=== PATIENT | female | born 1955 | race Caucasian/White ===

== ENCOUNTER → 2019-05-17 | Day surgery (SDC) | payer OTHER ==
[~2019-05-17] MED LIST: ASACOL400 MG PO; ATORVASTATIN CA20 MG PO; B12 IM; CALCIUM + D TA1 EACH; CELEXA20 MG PO; FAMOTIDINE 20 MG/2 ML VIAL IV ONE; FENTANYL CITRATE/PF 100MCG/2 ML INJ ONE; GLUCAGON FOR INJ 1 MG VIAL ONE; HYDROCHLOROTH12.5 MG PO; HYOSCYAMINE 0.125 MG TAB ONE; LEXAPRO10 MG PO; LISINOPRIL5 MG PO; MAGNESIUM500 MG PO; MIDAZOLAM HCL 2 MG/2 ML VIAL ONE; MIRALAX17 GM PO; MVI; NEXIUM40 MG PO; ONDANSETRON HCL INJ 2MG/ML 2ML 2 MG/ML VIAL ONE; PHENERGAN PO; PHENERGAN SUPP25 MG PR; PROPOFOL IV EMULSION 10 MG/ML 20 ML VIAL ONE; SENNALAX-S TAB1 EACH PO; TRAZODONE HCL50 MG PO; TYLENOL PO; VITAMIN B-121000 MCG PO; Z.0.EFFEXOR XR150 MG PO; Z.0.NEXIUM40 MG PO; Z.0.REGLAN10 MG PO; Z.0.XANAX0.5 MG PO; ZOFRAN8 MG PO; ZOFRAN8 MG SL; [UNRECOGNIZED DRUG - OTHER] PO; [UNRECOGNIZED DRUG - OTHER] PO
--- OUTSIDE RECORDS SUMMARY | 2019-05-17 06:13 | XMS REPORT | Clinical Summary ---
Author Author [facility] Address Unknown Phone Unavailable Care Team Providers Care Deputy Editor In Chief Name Role Phone Floyd Steele MD PCP Allergies Not on File Medications Not on file Active Problems Not on file Encounters Care Team Description Date Type Specialty Floyd Steele Jr., MD Screening breast examination 12/12/2018 Hospital Radiology Encounter Floyd Steele Jr., MD Menopause 12/12/2018 Hospital Radiology Encounter Floyd Steele Jr., MD Screening breast examination (Primary Dx); Menopause 12/07/2018 Transcribe Access Orders after 05/16/2018 Social History Date Tobacco Use Types Packs/Day Years Used Never Assessed Sex Assigned at Date Recorded Not on file Industry Job Start Date Occupation Not on file Not on file Not on file Travel End Travel History Travel Start No recent travel history available. Last Filed Vital Signs Not on file Plan of Treatment Health Maintenance Due Date Last Done Comments COLONOSCOPY SCREENING 2007 SHINGLES VACCINES (#1) 2007 INFLUENZA VACCINE 06/27/2019 BREAST CANCER SCREENING 12/12/2020 12/12/2018, 12/19/2017, 12/06/2016, Additional history exists Procedures Comments Procedure Name Priority Date/Time Associated Diagnosis BONE DENSITY Routine 12/12/2018 Menopause 11:53 AM [employer] MAMMO BREAST SCREEN Routine 12/12/2018 Screening breast TOMOSYNTHESIS BILATERAL 11:09 AM [employer]IENCE CAPTAIN examination after 05/16/2018 Results * Bone Density (12/12/2018 11:53 AM [employer]UE[employer] EXPERIENCE CAPTAIN) Specimen Narrative Performed At DEXA SCAN DATE: 12/12/2018 11:28 AM [facility] CLINICAL HISTORY:Z78.0 Asymptomatic menopausal state, MENOPAUSE COMMENT: DEXA bone densitometry was performed on the Hologic Discovery unit utilizing the lumbar spine and bilateral hips. AP spine (L2-L5) evaluation: Total BMD:1.125 g/cm2. Mean T score:-0.6 SD Left hip evaluation: Total BMD:0.932 g/cm2. Mean T score:-0.6 SD Left femoral neck BMD:0.848 g/cm2. Mean T score:-1.4 SD. Right hip evaluation: Total BMD:0.943 g/cm2. Mean T score:-0.5 SD Right femoral neck BMD: Right femoral neck BMD0.839 g/cm2. Mean T score:-1.4 SD. IMPRESSION: The patient is considered osteopenic according to the world health organization (WHO) guidelines. 10-year probability of fracture: Major osteoporotic: 8.1%. Hip fracture: 0.7%. Notes: *The world health organization (WHO) has classified the patient's T-score as follows: At or above (-1) as normal (-1) to (-2.5) as low (osteopenia) At or below (-2.5) as abnormally low (osteoporosis, increased fracture risk) For premenopausal women, men under the age 50 years, and children the WHO classification does not apply. In these individuals please assess bone mineral density with Z scores for each skeletal site examined. Z scores above -2.0: Within expected range for age. Z scores lower than -2.0:Low bone density for age. The TBS is derived from the texture of the DEXA image and has been shown to be related to bone microarchitecture and fracture risk. This data provides information independent of BMD value; is used as a complement to the data obtained from the DEXA analysis and the clinical examination. The TBS can assist the healthcare professional in assessment of fracture risk and in monitoring the effect of treatments on patient over time. [facility]-[id number] Procedure Note [facility], Radiology Results Incoming - 12/12/2018 2:16 PM [employer] EXPERIENCE [employer]TAIN DEXA SCAN DATE: 12/12/2018 11:28 AM CLINICAL HISTORY: Z78.0 Asymptomatic menopausal state, MENOPAUSE COMMENT: DEXA bone densitometry was performed on the Hologic Discovery unit utilizing the lumbar spine and bilateral hips. AP spine (L2-L5) evaluation: Total BMD:1.125 g/cm2. Mean T score:-0.6 SD Left hip evaluation: Total BMD:0.932 g/cm2. Mean T score:-0.6 SD Left femoral neck BMD:0.848 g/cm2. Mean T score:-1.4 SD. Right hip evaluation: Total BMD:0.943 g/cm2. Mean T score:-0.5 SD Right femoral neck BMD: Right femoral neck BMD0.839 g/cm2. Mean T score:-1.4 SD. IMPRESSION: The patient is considered osteopenic according to the world health organization (WHO) guidelines. 10-year probability of fracture: Major osteoporotic: 8.1%. Hip fracture: 0.7%. Notes: *The world health organization (WHO) has classified the patient's T-score as follows: At or above (-1) as normal (-1) to (-2.5) as low (osteopenia) At or below (-2.5) as abnormally low (osteoporosis, increased fracture risk) For premenopausal women, men under the age 50 years, and children the WHO classification does not apply. In these individuals please assess bone mineral density with Z scores for each skeletal site examined. Z scores above -2.0: Within expected range for age. Z scores lower than -2.0: Low bone density for age. The TBS is derived from the texture of the DEXA image and has been shown to be related to bone microarchitecture and fracture risk. This data provides information independent of BMD value; is used as a complement to the data obtained from the DEXA analysis and the clinical examination. The TBS can assist the healthcare professional in assessment of fracture risk and in monitoring the effect of treatments on patient over time. [facility]-[id number] Performing Organization Address City/State/Zipcode Phone Number [facility] [phone] [place] [address] * Mammo Breast Screen Tomosynthesis Bilateral (12/12/2018 11:09 AM GUEST EXPERIENCE CAPTAIN) Specimen Narrative Performed At PROCEDURE: MAMMO BREAST SCREEN TOMOSYNTHESIS BILATERAL [facility] Computer aided detection was utilized for the interpretation of the digital bilateral screening mammography with tomosynthesis. COMPARISON: Prior studies dating 12/19/2017, 12/06/2016 and 07/27/2015 DENSITY: There are scattered areas of fibroglandular density. There are benign scattered calcifications in both breasts. Post reduction mammoplasty changes are noted in both breasts. There is no evidence of suspicious masses, architectural distortions or grouped calcifications. IMPRESSION:No mammographic evidence of malignancy. RECOMMENDATION: Comparison with physical exam and annual screening mammography. BI-RADS 2: Benign. This facility is accredited by the [employer] for Mammography. A negative x-ray report should not delay biopsy if a dominant or clinically suspicious mass is present.Not all cancers are identified by x-ray. [id number] Performing Organization Address City/State/Zipcode Phone Number [facility] [address] [place] [address] after 05/16/2018 Insurance Type Payer Benefit Subscriber ID Effective Phone Address Plan / Dates Group HMO AETNA AETNA xxxxxxxxxx [id number] HMO,POS,EP resent O, MC/EC Advance Directives Patient has advance care planning documents on file. For more information, divine [facility]mar[facility] contact: Agustin Vaughn [address] [place] [address]
--- OUTSIDE RECORDS SUMMARY | 2019-05-17 06:14 | XMS REPORT | Summary of Care ---
Author Author [facility] Organization [facility] Neurosurgery [facility] Address Unknown Phone Unavailable Encounter JOSETTE Burnette(FIN) [id number] Date(s): 06/13/18 - 06/13/18 [facility] Neurosurgery [facility] [address] , [address] [place] [phone] Discharge Disposition: Home or Self Care Attending Physician: Esteban Cifuentes MD Referring Physician: Floyd Valero MD Vital Signs Most recent to 1 oldest [Reference Range]: Height 157.48 cm (06/13/18 8:00 AM) Blood Pressure 121/80 mmHg [90-140/60-90 mmHg] (06/13/18 8:00 AM) Peripheral Pulse 78 bpm Rate [60-100 bpm] (06/13/18 8:00 AM) Weight 62.727 kg (06/13/18 8:00 AM) Body Mass Index 25.29 m2 (06/13/18 8:00 AM) Problem List Condition Effective Dates Status Health Status Informant Cervical 09/19/12 Active radiculitis1 Back pain, Resolved chronic(Confirmed) Neck pain(Confirmed) Resolved Neck pain(Confirmed) Active Tobacco dependence 10/08/14 Active syndrome2 1Data migrated from [employer] on 07/21/15. 2Data migrated from [employer] on 07/21/15. Allergies, Adverse Reactions, Alerts Substance Reaction Severity Status codeine1, 2 nausea Active Adhesive Tape skin Active Tape3 Active 1Data migrated from [employer] on 02/16/16. Originally documented as CODEINE. 2Data migrated from [employer] on 01/27/16. Originally documented as CODEINE. 3Data migrated from [employer] on 01/27/16. Originally documented as TAPE. Medications No Known Medications Results No data available for this section Immunizations No data available for this section Procedures Procedure Date Related Diagnosis Body Site Status Breast reduction Completed C5-C6, C6-C7 anterior cervical diskectomy Completed lap choley Completed James-[place] Completed Social History Social History Type Response Substance Abuse Use: None. Alcohol Never Smoking Status Never smoker; Ready to change: No; Concerns about tobacco use in household: No; Exposure to Tobacco Smoke None; Cigarette Smoking Last 365 Days No; Reg Smoking Cessation Counseling No entered on: 06/13/18 Assessment and Plan No data available for this section
--- OUTSIDE RECORDS SUMMARY | 2019-05-17 06:14 | XMS REPORT | Summary of Care ---
Author Author CARaul Neurosurgery [facility] Organization [facility] Neurosurgery [facility] Address Unknown Phone Unavailable Encounter JOSETTE Burnette(FIN) [id number] Date(s): 06/13/18 - 06/13/18 [facility] Neurosurgery [facility] [address] , [address] [place] [phone] Discharge Disposition: Home or Self Care Attending [...]
--- OUTSIDE RECORDS SUMMARY | 2019-05-17 06:14 | XMS REPORT | CCD ---
Author Author Auto Generated Organization [facility] Address Unknown Phone Unavailable Care Team Providers Care Power Equipment Technology Instructor Name Role Phone Kem Tripp CP [phone] Allergies, Adverse Reactions, Alerts Substance Reaction Status codeine Active Tape Active Problem List Condition Effective Dates Status Anxiety Active GERD - Gastro-esophageal reflux disease Active Hypertension Active Irritable bowel syndrome Active Ulcerative colitis Active Medications Medication Instructions Start Date End Date Status lisinopril 5 mg oral 5 mg=1 tabs, Oral, Daily, # 30 09/01/2014 09/15/2014 Ordered tablet tabs, 0 Refill(s) Covaryx 1.25 mg-2.5 1 tabs, Oral, Daily, 0 Refill(s) 09/01/2014 09/15/2014 Ordered mg oral tablet Asacol HD 800 mg 1,600 mg=2 tabs, Oral, TID, # 252 09/01/2014 09/15/2014 Ordered oral delayed release tabs, 0 Refill(s) tablet Nexium 40 mg oral mg caps, Oral, Daily, 0 Refill(s) 09/01/2014 09/15/2014 Ordered delayed release capsule Demerol HCl 12.5 mg=0.5 mL, Injection, IV Push, 09/08/2014 09/08/2014 Discontinued q5min PRN for Pain Mild (1-3), order duration: 4 doses, first dose 09/08/14 8:47:00 CDT, stop date 09/08/14 10:20:00 CDT morphine 2 mg=0.2 mL, Injection, IV Push, 09/08/2014 09/08/2014 Discontinued q5min PRN for pain severe (7-10), order duration: 5 doses, first dose 09/08/14 8:47:00 CDT, stop date 09/08/14 10:20:00 CDT promethazine IVPB 12.5 mg, IV Piggyback, Once PRN for 09/08/2014 09/08/2014 Completed nausea/vomiting, infuse over 15 minutes, first dose 09/08/14 8:47:00 CDT ondansetron 4 mg=2 mL, Injection, IV Push, 09/08/2014 09/08/2014 Completed Once, first dose 09/08/14 7:00:00 CDT, stop date 09/08/14 7:00:00 CDT dexamethasone 8 mg=2 mL, Injection, IV Push, 09/08/2014 09/08/2014 Completed Once, first dose 09/08/14 7:00:00 CDT, stop date 09/08/14 7:00:00 CDT scopolamine 1.5 mg 1 patches, Film-ER, TD, Once, first 09/08/2014 09/08/2014 Completed transdermal film, dose 09/08/14 7:00:00 CDT, stop extended release date 09/08/14 7:00:00 CDT Zofran ODT 8 mg=2 tabs, Tab-Dis, SL, q8hr PRN 09/08/2014 09/08/2014 Discontinued for nausea/vomiting, first dose 09/08/14 8:42:00 CDT Phenergan 25mg 1 tabs, Oral, q4hr PRN for 09/08/2014 09/08/2014 Discontinued tablets nausea/vomiting, first dose 09/08/14 8:42:00 CDT, Patient's Own Meds lisinopril 5 mg=1 tabs, Tab, Oral, Daily, 09/08/2014 09/08/2014 Discontinued first dose 09/08/14 9:00:00 CDT, Patient's Own Meds Covaryx 1.25 mg-2.5 1 tabs, Oral, Daily, first dose 09/08/2014 09/08/2014 Discontinued mg oral tablet 09/08/14 9:00:00 CDT, Patient's Own Meds Asacol HD 1,600 mg, Tab-DR, Oral, TID, first 09/08/2014 09/08/2014 Discontinued dose 09/08/14 9:00:00 CDT Nexium 40 mg oral check with patient, Oral, Daily, 09/08/2014 09/08/2014 Discontinued delayed release first dose 09/08/14 9:00:00 CDT, capsule Patient's Own Meds Patient's Own Home 1 EA, Each, N/A, As Indicated PRN 09/08/2014 09/08/2014 Discontinued Med BIN for other (see comment), first dose 09/08/14 9:58:00 CDT, Patient's Own MedsPatient's Own Home Med Bin Access * This is a communcation order to allow access t o the patients home med bin* ethyl chloride 1 sprays, [place], TOP, Once, first 09/08/2014 09/08/2014 Ordered topical spray dose 09/08/14 7:00:00 CDT, stop date 09/08/14 7:00:00 CDT LR 1,000 mL 1,000 mL, IV, 100 mL/hr, start date 09/08/2014 09/08/2014 Discontinued 09/08/14 6:41:00 CDT, For Adults acetaminophen 1,000 mg, Soln-IV, IV, Once, first 09/08/2014 09/08/2014 Completed dose 09/08/14 7:34:00 CDT, stop date 09/08/14 7:34:00 CDT lidocaine 4 mL, Injection, IV, Once, first 09/08/2014 09/08/2014 Completed dose 09/08/14 7:31:00 CDT, stop date 09/08/14 7:31:00 CDT propofol 200 mg=20 mL, Emulsion, IV, Once, 09/08/2014 09/08/2014 Completed first dose 09/08/14 7:32:00 CDT, stop date 09/08/14 7:32:00 CDT fentaNYL 100 mcg=2 mL, Injection, IV, Once, 09/08/2014 09/08/2014 Completed first dose 09/08/14 7:42:00 CDT, stop date 09/08/14 7:42:00 CDT dexamethasone 10 mg=2.5 mL, Injection, IV, Once, 09/08/2014 09/08/2014 Completed first dose 09/08/14 7:32:00 CDT, stop date 09/08/14 7:32:00 CDT ondansetron 4 mg=2 mL, Injection, IV, Once, 09/08/2014 09/08/2014 Completed first dose 09/08/14 7:32:00 CDT, stop date 09/08/14 7:32:00 CDT cefoxitin 1 gm, Powder-Inj, IV, Once, first 09/08/2014 09/08/2014 Completed dose 09/08/14 7:32:00 CDT, stop date 09/08/14 7:32:00 CDT fentaNYL 100 mcg=2 mL, Injection, IV, Once, 09/08/2014 09/08/2014 Completed first dose 09/08/14 7:30:00 CDT, stop date 09/08/14 7:30:00 CDT famotidine 20 mg, Injection, IV, Once, first 09/08/2014 09/08/2014 Completed dose 09/08/14 7:32:00 CDT, stop date 09/08/14 7:32:00 CDT midazolam 2 mg=2 mL, Injection, IV, Once, 09/08/2014 09/08/2014 Completed first dose 09/08/14 7:30:00 CDT, stop date 09/08/14 7:30:00 CDT cefoxitin 1 gm, Soln-IV, IV Piggyback, Once, 09/08/2014 09/08/2014 Completed infuse over 30 minutes, first dose 09/08/14 7:00:00 CDT, stop date 09/08/14 7:00:00 CDT XaNAX 0.25 mg oral mg tabs, Oral, TID, 0 Refill(s) 09/01/2014 09/15/2014 Ordered tablet Phenergan 25mg =1 tabs, Oral, q4hr, PRN 09/01/2014 09/15/2014 Ordered tablets nausea/vomiting, # 40 tabs, 0 Refill(s) CeleXA 20 mg oral Check with patient, Oral, Daily, 09/08/2014 09/08/2014 Discontinued tablet first dose 09/08/14 9:00:00 CDT, Patient's Own Meds Calcium 600+D 1 tabs, Tab, Oral, TID, first dose 09/08/2014 09/08/2014 Discontinued 09/08/14 9:00:00 CDT XaNAX 0.25 mg oral na, Oral, TID, first dose 09/08/14 09/08/2014 09/08/2014 Discontinued tablet 9:00:00 CDT, Patient's Own Meds Colace 100 mg=1 caps, Cap, Oral, BID, 09/08/2014 09/08/2014 Discontinued first dose 09/08/14 9:00:00 CDT [place] 10 mg-325 mg 1 tabs, Tab, Oral, q4hr PRN for 09/08/2014 09/08/2014 Discontinued oral tablet pain mild-moderate (1-6), first dose 09/08/14 8:39:00 CDTMax 4gm acetaminophen in 24 hours morphine 2 mg=1 mL, Injection, IV Push, q2hr 09/08/2014 09/08/2014 Discontinued PRN for pain mild-moderate (1-6), first dose 09/08/14 8:40:00 CDT Misc Medication 900 mL, Soln-IV, IV, Once, first 09/08/2014 09/08/2014 Completed dose 09/08/14 8:27:00 CDT, stop date 09/08/14 8:27:00 CDT Zofran ODT 8 mg oral 8 mg=1 tabs, SL, q8hr, PRN for 09/01/2014 09/15/2014 Ordered tablet, Nausea/Vomiting, # 12 tabs, 0 disintegrating Refill(s) CeleXA 20 mg oral mg tabs, Oral, Daily, 0 Refill(s) 09/01/2014 09/15/2014 Ordered tablet Calcium 600+D tabs, Oral, TID, 0 Refill(s) 09/01/2014 09/15/2014 Ordered Vital Signs Most recent to oldest [Reference Range]: 1 2 3 Temperature Oral [35.8-37.3 DegC] 37.1 DegC (09/01/2014 09:30:00) Temperature Tympanic [36.6-38.1 DegC] 36.7 DegC (09/08/2014 06:33:00) Temperature Temporal Artery [36.3-37.8 DegC] 36.4 DegC (09/08/2014 09:40:00) 36.9 DegC (09/08/2014 08:30:00) Peripheral Pulse Rate [55-105 bpm] 67 bpm (09/08/2014 06:33:00) 70 bpm (09/01/2014 09:30:00) Heart Rate Monitored [60-100 bpm] 77 bpm (09/08/2014 11:10:00) 76 bpm (09/08/2014 10:40:00) 75 bpm (09/08/2014 10:25:00) Respiratory Rate [12-20] 16 (09/08/2014 11:10:00) 16 (09/08/2014 10:40:00) 16 (09/08/2014 10:25:00) SpO2 [90-100 %] 97 % (09/08/2014 11:10:00) 99 % (09/08/2014 10:40:00) 99 % (09/08/2014 10:25:00) Systolic Blood Pressure [110-120 mmHg] 108 mmHg *LOW* (09/08/2014 11:10:00) 100 mmHg *LOW* (09/08/2014 10:40:00) 98 mmHg *LOW* (09/08/2014 10:25:00) Diastolic Blood Pressure [65-85 mmHg] 63 mmHg *LOW* (09/08/2014 11:10:00) 58 mmHg *LOW* (09/08/2014 10:40:00) 54 mmHg *LOW* (09/08/2014 10:25:00) Mean Arterial Pressure, Cuff 78 mmHg (09/08/2014 11:10:00) 72 mmHg (09/08/2014 10:40:00) 68.7 mmHg (09/08/2014 10:25:00) Height/Length Estimated 158 cm (09/01/2014 09:30:00) Weight 71.5 kg (09/01/2014 09:30:00) Weight Dosing 71.5 kg (09/01/2014 09:30:00) Weight Pounds 157 lb (09/01/2014 09:30:00) Procedures Procedures Date Related Diagnosis ABDOMINALPLASTY BLADDER SUSPENSION BREAST REDUCTION HYSTERECTOMY LAP CHOLECYSTECTOMY COTTER STOMACH BAND COTTER STOMACH BAND REMOVAL ELIJAH-N-Y STOMACH RESECTION
--- OUTSIDE RECORDS SUMMARY | 2019-05-17 06:14 | XMS REPORT | Continuity of Care Document ---
Author Author [facility] Interface Address Unknown Phone Unavailable Problems Problem Status Onset Date Classification Date Reported Comments Source Tobacco dependence syndrome<sup>2</sup> Active 10/08/2014 Problem 02/25/2019 Data migrated from [employer] on 07/21/15. [facility] 723.0,CPT-49578,48605 X 2 , 95710,68917 X 2 , 68503 Active 09/20/2012 [facility] 723.0,CPT-02439,63304 X 2 , 08933,47958 Active 09/20/2012 [facility] Cervical radiculitis<sup>1</sup> Active 09/19/2012 Problem 02/25/2019 Data migrated from [employer] on 07/21/15. [facility] Back pain, chronic Resolved Problem 02/25/2019 [facility] Neck pain Resolved Problem 02/25/2019 [facility] Neck pain Active Problem 11/16/2012 [facility] Outpatient Imaging [facility] Anxiety Active Problem 09/10/2014 [facility] GERD - Gastro-esophageal reflux disease Active Problem 09/10/2014 [facility] Hypertension Active Problem 09/10/2014 [facility] Irritable bowel syndrome Active Problem 09/10/2014 [facility] Ulcerative colitis Active Problem 09/10/2014 [facility] CERVICAL SPINAL STENOSIS Active [facility] Medications Medication Details Route Status Patient Instructions Ordering Provider Order Date Source Esomeprazole 40 MG Enteric Coated Capsule 40 mg=1 cap, PO, Daily, # 30 cap, 0 Refill(s) Active 05/22/2018 [facility] Trazodone Hydrochloride 50 MG Oral Tablet 50 mg=1 tab, PO, Bedtime, # 30 tab, 1 Refill(s) Active 05/22/2018 [facility] escitalopram 20 mg oral tablet 20 mg=1 tab, PO, Daily, # 30 tab, 0 Refill(s) Active 05/22/2018 [facility] polyethylene glycol 3350 oral powder for reconstitution 17 gm, PO, Daily, 0 Refill(s) Active 05/22/2018 [facility] Ondansetron 8 MG Oral Tablet [Zofran] 8 mg=1 tab, PO, TID, # 3 tab, 0 Refill(s) Active 05/22/2018 [facility] lisinopril 2.5 mg oral tablet 2.5 mg=1 tab, PO, Daily, # 30 tab, 0 Refill(s) Active 05/22/2018 [facility] Vitamin B12 1000 mcg oral tablet 1,000 microgram=1 tab, PO, Daily, # 30 tab, 0 Refill(s) Active 05/22/2018 [facility] Alprazolam 0.25 MG Oral Tablet [Xanax] 0.25 mg=1 tab, PO, TID, PRN Anxiety, # 30 tab, 0 Refill(s) Active 05/22/2018 [facility] Patient's Own Home Med BIN 1 EA, Each, N/A, As Indicated PRN for other (see comment), first dose 09/08/14 9:58:00 CDT, Patient's Own MedsPatient's Own Home Med Bin Access *This is a communcation order to allow access to the patients home med bin* Inactive [place] 09/08/2014 [facility] lisinopril 5 mg=1 tabs, Tab, Oral, Daily, first dose 09/08/14 9:00:00 CDT, Patient's Own Meds Inactive [place] 09/08/2014 [facility] Covaryx 1.25 mg-2.5 mg oral tablet 1 tabs, Oral, Daily, first dose 09/08/14 9:00:00 CDT, Patient's Own Meds Inactive [place] 09/08/2014 [facility] Asacol HD 1,600 mg, Tab-DR, Oral, TID, first dose 09/08/14 9:00:00 CDT Inactive [place] 09/08/2014 [facility] Nexium 40 mg oral delayed release capsule check with patient, Oral, Daily, first dose 09/08/14 9:00:00 CDT, Patient's Own Meds Inactive [place] 09/08/2014 [facility] CeleXA 20 mg oral tablet Check with patient, Oral, Daily, first dose 09/08/14 9:00:00 CDT, Patient's Own Meds Inactive [place] 09/08/2014 [facility] Calcium 600+D 1 tabs, Tab, Oral, TID, first dose 09/08/14 9:00:00 CDT Inactive [place] 09/08/2014 [facility] XaNAX 0.25 mg oral tablet na, Oral, TID, first dose 09/08/14 9:00:00 CDT, Patient's Own Meds Inactive [place] 09/08/2014 [facility] Colace 100 mg=1 caps, Cap, Oral, BID, first dose 09/08/14 9:00:00 CDT Inactive [place] 09/08/2014 [facility] Demerol HCl 12.5 mg=0.5 mL, Injection, IV Push, q5min PRN for Pain Mild (1-3), order duration: 4 doses, first dose 09/08/14 8:47:00 CDT, stop date 09/08/14 10:20:00 CDT Inactive [facility] 09/08/2014 [facility] morphine 2 mg=0.2 mL, Injection, IV Push, q5min PRN for pain severe (7-10), order duration: 5 doses, first dose 09/08/14 8:47:00 CDT, stop date 09/08/14 10:20:00 CDT Inactive [facility] 09/08/2014 [facility] promethazine IVPB 12.5 mg, IV Piggyback, Once PRN for nausea/vomiting, infuse over 15 minutes, first dose 09/08/14 8:47:00 CDT Inactive [facility] 09/08/2014 [facility] Zofran ODT 8 mg=2 tabs, Tab-Dis, SL, q8hr PRN for nausea/vomiting, first dose 09/08/14 8:42:00 CDT Inactive [place] 09/08/2014 [facility] Phenergan 25mg tablets 1 tabs, Oral, q4hr PRN for nausea/vomiting, first dose 09/08/14 8:42:00 CDT, Patient's Own Meds Inactive [place] 09/08/2014 [facility] morphine 2 mg=1 mL, Injection, IV Push, q2hr PRN for pain mild-moderate (1-6), first dose 09/08/14 8:40:00 CDT Inactive Qasim 09/08/2014 [facility] [place] 10 mg-325 mg oral tablet 1 tabs, Tab, Oral, q4hr PRN for pain mild-moderate (1-6), first dose 09/08/14 8:39:00 CDTMax 4gm acetaminophen in 24 hours Inactive Qasim 09/08/2014 [facility] Misc Medication 900 mL, Soln-IV, IV, Once, first dose 09/08/14 8:27:00 CDT, stop date 09/08/14 8:27:00 CDT Inactive Mara 09/08/2014 [facility] fentaNYL 100 mcg=2 mL, Injection, IV, Once, first dose 09/08/14 7:42:00 CDT, stop date 09/08/14 7:42:00 CDT Inactive Mara 09/08/2014 [facility] acetaminophen 1,000 mg, Soln-IV, IV, Once, first dose 09/08/14 7:34:00 CDT, stop date 09/08/14 7:34:00 CDT Inactive Mara 09/08/2014 [facility] propofol 200 mg=20 mL, Emulsion, IV, Once, first dose 09/08/14 7:32:00 CDT, stop date 09/08/14 7:32:00 CDT Inactive Mara 09/08/2014 [facility] dexamethasone 10 mg=2.5 mL, Injection, IV, Once, first dose 09/08/14 7:32:00 CDT, stop date 09/08/14 7:32:00 CDT Inactive Mara 09/08/2014 [facility] ondansetron 4 mg=2 mL, Injection, IV, Once, first dose 09/08/14 7:32:00 CDT, stop date 09/08/14 7:32:00 CDT Inactive Mara 09/08/2014 [facility] cefoxitin 1 gm, Powder-Inj, IV, Once, first dose 09/08/14 7:32:00 CDT, stop date 09/08/14 7:32:00 CDT Inactive Mara 09/08/2014 [facility] famotidine 20 mg, Injection, IV, Once, first dose 09/08/14 7:32:00 CDT, stop date 09/08/14 7:32:00 CDT Inactive Mara 09/08/2014 [facility] lidocaine 4 mL, Injection, IV, Once, first dose 09/08/14 7:31:00 CDT, stop date 09/08/14 7:31:00 CDT Inactive Terry 09/08/2014 [facility] fentaNYL 100 mcg=2 mL, Injection, IV, Once, first dose 09/08/14 7:30:00 CDT, stop date 09/08/14 7:30:00 CDT Inactive Terry 09/08/2014 [facility] midazolam 2 mg=2 mL, Injection, IV, Once, first dose 09/08/14 7:30:00 CDT, stop date 09/08/14 7:30:00 CDT Inactive Terry 09/08/2014 [facility] ondansetron 4 mg=2 mL, Injection, IV Push, Once, first dose 09/08/14 7:00:00 CDT, stop date 09/08/14 7:00:00 CDT Inactive Lastockristin 09/08/2014 [facility] dexamethasone 8 mg=2 mL, Injection, IV Push, Once, first dose 09/08/14 7:00:00 CDT, stop date 09/08/14 7:00:00 CDT Inactive Lastoc 09/08/2014 [facility] scopolamine 1.5 mg transdermal film, extended release 1 patches, Film-ER, TD, Once, first dose 09/08/14 7:00:00 CDT, stop date 09/08/14 7:00:00 CDT Inactive Lastoczy 09/08/2014 [facility] ethyl chloride topical spray 1 sprays, [place], TOP, Once, first dose 09/08/14 7:00:00 CDT, stop date 09/08/14 7:00:00 CDT Inactive Lastocz 09/08/2014 [facility] cefoxitin 1 gm, Soln-IV, IV Piggyback, Once, infuse over 30 minutes, first dose 09/08/14 7:00:00 CDT, stop date 09/08/14 7:00:00 CDT Inactive Qasim 09/08/2014 [facility] LR 1,000 mL 1,000 mL, IV, 100 mL/hr, start date 09/08/14 6:41:00 CDT, For Adults Inactive Lastoczy 09/08/2014 [facility] XaNAX 0.25 mg oral tablet mg tabs, Oral, TID, 0 Refill(s) Active 09/01/2014 [facility] Phenergan 25mg tablets =1 tabs, Oral, q4hr, PRN nausea/vomiting, # 40 tabs, 0 Refill(s) Active 09/01/2014 [facility] Zofran ODT 8 mg oral tablet, disintegrating 8 mg=1 tabs, SL, q8hr, PRN for Nausea/Vomiting, # 12 tabs, 0 Refill(s) Active 09/01/2014 [facility] CeleXA 20 mg oral tablet mg tabs, Oral, Daily, 0 Refill(s) Active 09/01/2014 [facility] Calcium 600+D tabs, Oral, TID, 0 Refill(s) Active 09/01/2014 [facility] lisinopril 5 mg oral tablet 5 mg=1 tabs, Oral, Daily, # 30 tabs, 0 Refill(s) Active 09/01/2014 [facility] Covaryx 1.25 mg-2.5 mg oral tablet 1 tabs, Oral, Daily, 0 Refill(s) Active 09/01/2014 [facility] Asacol HD 800 mg oral delayed release tablet 1,600 mg=2 tabs, Oral, TID, # 252 tabs, 0 Refill(s) Active 09/01/2014 [facility] Nexium 40 mg oral delayed release capsule mg caps, Oral, Daily, 0 Refill(s) Active 09/01/2014 [facility] Vitamin B12 1,000 microgram, 1 mL, Route: IM, Drug form: INJ, QTue, Start date: 10/02/12 9:00:00, Duration: 30 day, Stop date: 10/30/12 9:00:00 IM No Longer Active Sherry 10/02/2012 [facility] heparin 5,000 unit, 1 mL, Route: SUB-Q, Drug form: INJ, [id number], Start date: 10/02/12 6:00:00, Duration: 30 day, Stop date: 10/31/12 18:00:00 SUB-Q No Longer Active Fenoy 10/02/2012 [facility] Dulcolax Laxative 10 mg, 1 supp, Route: OR, Drug form: SUPP, ONCE, Start date: 10/01/12 21:00:00, Stop date: 10/01/12 21:00:00 OR No Longer Active Yarima 10/02/2012 [facility] heparin 5,000 unit, 1 mL, Route: SUB-Q, Drug form: INJ, [id number], Start date: 10/01/12 18:00:00, Duration: 30 day, Stop date: 10/31/12 6:00:00 SUB-Q No Longer Active Fenoy 10/02/2012 [facility] docusate sodium 100 mg oral capsule 100 mg, 1 cap, Route: PO, Drug form: CAP, BID, Start date: 10/01/12 17:00:00, Duration: 30 day, Stop date: 10/31/12 9:00:00 PO No Longer Active Fenoy 10/01/2012 [facility] multivitamin with minerals 1 tab, Route: PO, Drug Form: TAB, Breakfast, Start date: 10/01/12 17:00:00, Duration: 30 day, Stop date: 10/31/12 8:00:00 PO No Longer Active Fenoy 10/01/2012 [facility] Vitamin D3 400 unit, 1 tab, Route: PO, Drug form: TAB, Daily, Start date: 10/01/12 17:00:00, Duration: 30 day, Stop date: 10/31/12 9:00:00 PO No Longer Active Fenoy 10/01/2012 [facility] Tums 1,000 mg, 2 tab, Route: CHEW, Drug form: CHEWTAB, Daily, Start date: 10/01/12 17:00:00, Duration: 30 day, Stop date: 10/31/12 9:00:00 CHEW No Longer Active Fenoy 10/01/2012 [facility] esterified estrogens-methyltestosterone 0.625 mg-1.25 mg oral tablet 2 tab, Route: PO, Drug Form: TAB, Daily, Start date: 10/01/12 17:00:00, Duration: 30 day, Stop date: 10/31/12 9:00:00 PO No Longer Active Fenoy 10/01/2012 [facility] Prinivil 5 mg, 1 tab, Route: PO, Drug form: TAB, Daily, Start date: 10/01/12 17:00:00, Duration: 30 day, Stop date: 10/31/12 9:00:00 PO No Longer Active Fenoy 10/01/2012 [facility] Protonix 40 mg, 1 tab, Route: PO, Drug form: ECTAB, Before Dinner, Start date: 10/01/12 16:30:00, Duration: 30 day, Stop date: 10/30/12 16:30:00 PO No Longer Active Fenoy 10/01/2012 [facility] cefazolin + Sodium Chloride 0.9% IV 100 mL 1 gm, Route: IVPB, ABXQ8H, Start date: 10/01/12 15:00:00, Duration: 2 doses or times, Stop date: 10/01/12 23:00:00 IVPB No Longer Active Fenoy 10/01/2012 [facility] Protonix 40 mg, 1 tab, Route: PO, Drug form: ECTAB, Q12H, Start date: 10/01/12 13:00:00, Duration: 30 day, Stop date: 10/31/12 9:00:00 PO No Longer Active Fenoy 10/01/2012 [facility] Celexa 20 mg, 1 tab, Route: PO, Drug form: TAB, Daily, PRN Other -See Comment, Start date: 10/01/12 11:35:00, Duration: 30 day, Stop date: 10/31/12 11:34:00 PO No Longer Active Fenoy 10/01/2012 [facility] Levsin 0.125 mg, 1 tab, Route: SL, Drug form: TAB, Q4H, PRN Stomach Upset, Start date: 10/01/12 11:32:00, Duration: 30 day, Stop date: 10/31/12 11:31:00 SL No Longer Active Fenoy 10/01/2012 [facility] Antivert 25 mg, 1 tab, Route: PO, Drug form: TAB, Q8H, PRN Dizziness, Start date: 10/01/12 11:31:00, Duration: 30 day, Stop date: 10/31/12 11:30:00 PO No Longer Active Fenoy 10/01/2012 [facility] Microzide 12.5 mg, 1 cap, Route: PO, Drug form: CAP, Daily, PRN Other -See Comment, Start date: 10/01/12 11:25:00, Duration: 30 day, Stop date: 10/31/12 11:24:00 PO No Longer Active Fenoy 10/01/2012 [facility] Reglan 10 mg, 1 tab, Route: PO, Drug form: TAB, BID, PRN Nausea & Vomiting, Start date: 10/01/12 11:21:00, Duration: 30 day, Stop date: 10/31/12 11:20:00 PO No Longer Active Fenoy 10/01/2012 [facility] benzocaine-cetylpyridinium topical 1 lozenge, Route: MUCOUS MEM, Q6H, Drug form: CASE PRN Sore Throat, Start date: 10/01/12 11:21:00, Duration: 30 day, Stop date: 10/31/12 11:20:00 MUCOUS MEM No Longer Active Fenoy 10/01/2012 [facility] Zofran 8 mg, 4 mL, Route: IVP, Drug form: INJ, Q8H, PRN Nausea, Start date: 10/01/12 11:21:00, Duration: 30 day, Stop date: 10/31/12 11:20:00 IVP No Longer Active Fenoy 10/01/2012 [facility] Valium 5 mg, 1 mL, Route: IV, Drug form: INJ, Q4H, PRN Muscle Spasms, Start date: 10/01/12 11:21:00, Duration: 30 day, Stop date: 10/31/12 11:20:00 IV No Longer Active Fenoy 10/01/2012 [facility] Tylenol 650 mg, 2 tab, Route: PO, Drug form: TAB, Q4H, PRN Pain/Fever, Start date: 10/01/12 11:21:00, Duration: 30 day, Stop date: 10/31/12 11:20:00 PO No Longer Active Fenoy 10/01/2012 [facility] Dilaudid 8 mg, 4 tab, Route: PO, Drug form: TAB, Q4H, PRN Pain Score 7-10, Start date: 10/01/12 11:21:00, Duration: 30 day, Stop date: 10/31/12 11:20:00 PO No Longer Active Fenoy 10/01/2012 [facility] Lactated Ringers Injection IV 1,000 mL 1,000 mL, Rate: 125 ml/hr, Infuse over: 8 hr, Route: IV, kg, Total Volume: 1,000, Start date: 10/01/12 11:20:00, Duration: 30 day, Stop date: 10/31/12 11:19:00 IV No Longer Active Fenoy 10/01/2012 [facility] Demerol HCl 12.5 mg, Route: IVP, ONCE, Dosing Weight 67.273, kg, Start date: 10/01/12 10:30:00, Stop date: 10/01/12 10:30:00 IVP No Longer Active Frankel 10/01/2012 [facility] Demerol HCl 12.5 mg, Route: IVP, ONCE, Dosing Weight 67.273, kg, Start date: 10/01/12 10:10:00, Stop date: 10/01/12 10:10:00 IVP No Longer Active Frankel 10/01/2012 [facility] Zofran 4 mg, Route: IV, Drug form: INJ, ONCE, Dosing Weight 67.273, kg, PRN Nausea, Start date: 10/01/12 6:32:00, Stop date: 10/31/12 6:31:00 IV No Longer Active Watkins 10/01/2012 [facility] Pepcid 20 mg, Route: IVP, ONCE, Dosing Weight 67.273, kg, Start date: 10/01/12 6:32:00, Stop date: 10/01/12 6:32:00 IVP No Longer Active Watkins 10/01/2012 [facility] Reglan 10 mg, Route: IVP, ONCE, Dosing Weight 67.273, kg, Start date: 10/01/12 6:32:00, Stop date: 10/01/12 6:32:00 IVP No Longer Active Watkins 10/01/2012 [facility] Lactated Ringers Injection IV 1,000 mL 1,000 mL, Rate: 70 ml/hr, Infuse over: 14.3 hr, Route: IV, kg, Total Volume: 1,000, Start date: 10/01/12 6:00:00, Duration: 1 doses or times, Stop date: 10/01/12 20:17:00 IV No Longer Active Fenoy 10/01/2012 [facility] cefazolin + Sodium Chloride 0.9% IV 100 mL 1 gm, Route: IVPB, PRE OP, Start date: 10/01/12 6:00:00, Duration: 1 doses or times IVPB No Longer Active Fenoy 10/01/2012 [facility] lidocaine 0.1 mL, Route: IV, Drug form: INJ, ONCALL, Start date: 10/01/12 6:00:00, Duration: 1 doses or times IV No Longer Active Watkins 10/01/2012 [facility] Allergies, Adverse Reactions, Alerts Substance Category Reaction Severity Reaction type Status Date Reported Comments Source codeine<sup>1, 2</sup> Assertion nausea Drug allergy Active 09/19/2012 Data migrated from [employer] on 01/27/16. Originally documented as CODEINE. [facility] Tape<sup>3</sup> Assertion Drug allergy Active 09/19/2012 Data migrated from [employer] on 01/27/16. Originally documented as TAPE. [facility] Adhesive Tape Assertion skin Drug allergy Active [facility] codeine drug allergy Allergy [facility] Tape drug allergy Allergy [facility] Immunizations Immunization Date Given Site Status Last Updated Comments Source Results Order Name Results Value Reference Range Date Interpretation Comments Source BLOOD BANK RESULTS Antibody Scrn Negative (09/25/2012 10:25:00) 09/25/2012 Normal [facility] BLOOD BANK RESULTS ABO/Rh O POS 09/25/2012 Unknown [facility] CHEMISTRY AGAP 10.1 meq/L 10.0 - 20.0 09/25/2012 Normal [facility] CHEMISTRY eGFR 51 mL/min/1.73m2 09/25/2012 NA 1Result Comment: The eGFR is calculated using the CKD-EPI formula. In most young, healthy individuals the eGFR will be >90 mL/min/1.73m2. The eGFR declines with age. An eGFR of 60-89 may be normal in some populations, particularly the elderly, for whom the CKD-EPI formula has not been extensively validated. Use of the eGFR is not recommended in the following populations: Individuals with unstable creatinine concentrations, including patients and those with serious co-morbid conditions. Patients with extremes in muscle mass or diet. The data above are obtained from the National Kidney Disease Education Program (NKDEP) which additionally recommends that when the eGFR is used in patients with extremes of body mass index for purposes of drug dosing, the eGFR should be multiplied by the estimated BMI. [facility] CHEMISTRY Creatinine Lvl 1.2 mg/dL 0.5 - 1.4 09/25/2012 Normal [facility] CHEMISTRY Potassium Lvl 5.1 meq/L 3.5 - 5.1 09/25/2012 Normal [facility] CHEMISTRY Sodium Lvl 142 meq/L 135 - 145 09/25/2012 Normal [facility] CHEMISTRY Chloride Lvl 106 meq/L 95 - 109 09/25/2012 Normal [facility] CHEMISTRY Glucose Lvl 106 mg/dL 70 - 99 09/25/2012 HI 2Interpretive Data: Adult reference range values reflect the clinical guidelines of the [place] [employer]. [facility] CHEMISTRY BUN 13 mg/dL 7 - 22 09/25/2012 Normal [facility] CHEMISTRY Calcium Lvl 9.6 mg/dL 8.5 - 10.5 09/25/2012 Normal [facility] CHEMISTRY CO2 31 meq/L 24 - 32 09/25/2012 Normal [facility] HEMATOLOGY Monocytes # 0.3 K/CMM 0.0 - 0.8 09/25/2012 Normal [facility] HEMATOLOGY Eosinophils # 0.2 K/CMM 0.0 - 0.5 09/25/2012 Normal [facility] HEMATOLOGY Basophils # 0.0 K/CMM 0.0 - 0.2 09/25/2012 Normal [facility] HEMATOLOGY Basophils 0.6 % 0.0 - 1.0 09/25/2012 Normal [facility] HEMATOLOGY Segs-Bands # 2.5 K/CMM 1.5 - 8.1 09/25/2012 Normal [facility] HEMATOLOGY Lymphocytes # 1.6 K/CMM 1.0 - 5.5 09/25/2012 Normal [facility] HEMATOLOGY Segs 53.1 % 45.0 - 75.0 09/25/2012 Normal [facility] HEMATOLOGY Lymphocytes 34.8 % 20.0 - 40.0 09/25/2012 Normal [facility] HEMATOLOGY Eosinophils 4.0 % 0.0 - 4.0 09/25/2012 Normal [facility] HEMATOLOGY Monocytes 7.5 % 2.0 - 12.0 09/25/2012 Normal [facility] HEMATOLOGY INR 0.95 0.85 - 1.17 09/25/2012 Normal 3Interpretive Data: RECOMMENDED RANGES FOR PROTIME INR: 2.0-3.0 for most medical and surgical thromboembolic states. 2.5-3.5 for artificial heart valves and recurrent embolism. INR SHOULD BE USED ONLY FOR PATIENTS ON STABLE ANTICOAGULANT THERAPY. [facility] HEMATOLOGY PT 12.9 s 12.0 - 14.7 09/25/2012 Normal [facility] HEMATOLOGY PTT 38.2 s 22.9 - 35.8 09/25/2012 HI 4Interpretive Data: Heparin Therapeutic Range: 57 - 92 [facility] MPV 8.3 fL 7.4 - 10.4 09/25/2012 Normal [facility] HEMATOLOGY RDW 14.1 % 11.5 - 14.5 09/25/2012 Normal [facility] MCHC 33.0 g/dL 32.0 - 36.0 09/25/2012 Normal [facility] MCH 30.0 pg 27.0 - 31.0 09/25/2012 Normal [facility] MCV 90.9 fL 81.0 - 99.0 09/25/2012 Normal [facility] Platelet 229 K/CMM 133 - 450 09/25/2012 Normal [facility] WBC 4.6 K/CMM 3.7 - 10.4 09/25/2012 Normal [facility] RBC 4.50 M/CMM 4.20 - 5.40 09/25/2012 Normal [facility] Hct 40.9 % 36.0 - 48.0 09/25/2012 Normal [facility] Hgb 13.5 g/dL 12.0 - 16.0 09/25/2012 Normal [facility] URINALYSIS UA Leuk Est Negative (09/25/2012 10:25:00) Negative 09/25/2012 Normal [facility] URINALYSIS Micro? Not Indicated (09/25/2012 10:25:00) 09/25/2012 Normal [facility] URINALYSIS UA Blood Negative (09/25/2012 10:25:00) Negative 09/25/2012 Normal [facility] URINALYSIS UA Ketones Negative *NA* (09/25/2012 10:25:00) Negative 09/25/2012 NA [facility] URINALYSIS UA Nitrite Negative (09/25/2012 10:25:00) Negative 09/25/2012 Normal [facility] URINALYSIS UA Urobilinogen 0.2 EU/dL 0.1 - 1.0 09/25/2012 Normal [facility] URINALYSIS UA Bili Negative *NA* (09/25/2012 10:25:00) Negative 09/25/2012 NA [facility] URINALYSIS UA Spec Grav <=1.005
*NA*
(09/25/2012 10:25:00) <sup> </sup> <=1.030 09/25/2012 NA [facility] URINALYSIS UA Glucose Negative (09/25/2012 10:25:00) Negative 09/25/2012 Normal [facility] URINALYSIS UA Protein Negative (09/25/2012 10:25:00) Negative 09/25/2012 Normal [facility] URINALYSIS UA Color STRAW 09/25/2012 NA [facility] URINALYSIS UA Turbidity Clear (09/25/2012 10:25:00) Clear 09/25/2012 Normal [facility] URINALYSIS UA pH 6.5 5.0 - 8.0 09/25/2012 Normal [facility] Vital Signs Vital Sign Value Date Comments Source Heart Rate 78 06/13/2018 [facility] BMI Calculated 25.29 06/13/2018 [facility] Height 157.48 cm 06/13/2018 [facility] Weight 62.727 06/13/2018 [facility] Systolic (mm Hg) 121 06/13/2018 [facility] Diastolic (mm Hg) 80 06/13/2018 [facility] BMI Calculated 24.47 05/22/2018 [facility] Height 157.48 cm 05/22/2018 [facility] Weight 60.682 05/22/2018 [facility] Heart Rate 84 05/22/2018 [facility] Systolic (mm Hg) 143 05/22/2018 [facility] Diastolic (mm Hg) 84 05/22/2018 [facility] Diastolic (mm Hg) 63 09/08/2014 [facility] Systolic (mm Hg) 108 09/08/2014 [facility] Respitory Rate 16 09/08/2014 [facility] Heart Rate 77 09/08/2014 [facility] Diastolic (mm Hg) 58 09/08/2014 [facility] Systolic (mm Hg) 100 09/08/2014 [facility] Respitory Rate 16 09/08/2014 [facility] Heart Rate 76 09/08/2014 [facility] Diastolic (mm Hg) 54 09/08/2014 [facility] Systolic (mm Hg) 98 09/08/2014 [facility] Respitory Rate 16 09/08/2014 [facility] Heart Rate 75 09/08/2014 [facility] Temperature Oral (F) 36.4 Joyce 09/08/2014 [facility] Temperature Oral (F) 36.9 Joyce 09/08/2014 [facility] Temperature Oral (F) 36.7 Joyce 09/08/2014 [facility] Peripheral Pulse Rate 67 09/08/2014 [facility] Weight 71.5 09/01/2014 [facility] Peripheral Pulse Rate 70 09/01/2014 [facility] Temperature Oral (F) 37.1 Joyce 09/01/2014 [facility] Temperature Oral (F) 98 F 10/02/2012 [facility] Heart Rate 91 10/02/2012 [facility] Respitory Rate 20 10/02/2012 [facility] Diastolic (mm Hg) 54 10/02/2012 [facility] Systolic (mm Hg) 92 10/02/2012 [facility] Diastolic (mm Hg) 62 10/02/2012 [facility] Systolic (mm Hg) 104 10/02/2012 [facility] Respitory Rate 18 10/02/2012 [facility] Temperature Oral (F) 97.9 F 10/02/2012 [facility] Heart Rate 99 10/02/2012 [facility] Systolic (mm Hg) 114 10/02/2012 [facility] Diastolic (mm Hg) 62 10/02/2012 [facility] Heart Rate 92 10/02/2012 [facility] Respitory Rate 18 10/02/2012 [facility] Temperature Oral (F) 97.7 F 10/02/2012 [facility] Weight 67.273 09/25/2012 [facility] Height 157.48 cm 09/25/2012 [facility] Encounters Location Location Details Encounter Type Encounter Number Reason For Visit Attending Provider ADM Date DC Date Status Source Not Sent Inpatient [id number] X 2 , [id number] X 2 , [id number] VISHAL MAYS JR 10/01/2012 10/02/2012 Active [facility] Outpatient [id number] Kem Tripp 09/08/2014 09/08/2014 Active [facility] Phone Message [id number] 05/14/2018 [facility] [id number] 05/17/2018 05/19/2018 [facility] [id number] VILMA DIEGO 05/22/2018 Active [facility] [id number] VILMA DIEGO 05/22/2018 Active [facility] Outpatient [id number] Floyd Steele Jr 05/22/2018 05/23/2018 [facility] Ambulatory Pre-Reg [id number] Floyd Maccel Jr 05/22/2018 05/22/2018 [facility] Phone Message [id number] 05/25/2018 05/27/2018 [facility] [id number] VISHAL MAYS JR 06/13/2018 Active [facility] Outpatient [id number] Vishal Mays Jr 06/13/2018 06/14/2018 [facility] [id number] [facility]ISH[facility]YS JR 2018 [facility] Pre[facility]Reg [id number] Vishal Mays Jr 2018 2018 [facility] Phone Message [id number] 08/07/2018 08/09/2018 [facility] Procedures Procedure Code Date Perfomer Comments Source Breast reduction [id number] [facility] lap choley [id number] [facility] C5-C6, C6-C7 anterior cervical diskectomy [id number] [facility] Elijah-N-Y [id number] [facility] ABDOMINALPLASTY [facility] BLADDER SUSPENSION [facility] BREAST REDUCTION [facility] HYSTERECTOMY [facility] LAP CHOLECYSTECTOMY [facility] COTTER STOMACH BAND [facility] COTTER STOMACH BAND REMOVAL [facility] ELIJAH-N-Y STOMACH RESECTION [facility]
--- OUTSIDE RECORDS SUMMARY | 2019-05-17 06:14 | XMS REPORT | Summary of Care ---
Author Author [facility] Neurosurgery [facility] Organization [facility] Neurosurgery [facility] Address Unknown Phone Unavailable Encounter HQ Encntr_alipari(FIN) [id number] Date(s): 05/14/18 - 05/15/18 [facility] Neurosurgery [facility] [address] [place] [phone] Vital Signs No data available for this section Problem List Condition Effective Dates Status Health Status Informant Cervical 09/19/12 Active radiculitis1 Neck pain(Confirmed) Active Tobacco dependence 10/08/14 Active [...] 01/27/16. Originally documented as TAPE. Medications No data available for this section Results No data available for this section Immunizations No data available for this section Procedures No data available for this section Social History Social History Type Response Assessment and Plan No data available for this section
--- OUTSIDE RECORDS SUMMARY | 2019-05-17 06:14 | XMS REPORT | Summary of Care ---
Author Author [facility] Neurosurgery [facility] Organization [facility] Neurosurgery [facility] Address Unknown Phone Unavailable Encounter HQ Vasile(FIN) [id number] Date(s): 07/11/18 - 07/11/18 [facility] Neurosurgery [facility] [address] , [address] [place] [phone] Attending Physician: Esteban Cifuentes MD Referring Physician: Floyd Valero MD Vital Signs No data available for this [...]
--- OUTSIDE RECORDS SUMMARY | 2019-05-17 06:14 | XMS REPORT | Summary of Care ---
Author Author [facility] Neurosurgery [facility] Organization [facility] Neurosurgery [facility] Address Unknown Phone Unavailable Encounter HQ Vasile(FIN) [id number] Date(s): 05/22/18 - 05/22/18 [facility] Neuro[facility] [address] , [address] [place] [phone] Attending Physician: Ely Carrasco NP Referring Physician: Floyd Valero MD Vital Signs [...] section Social History Social History Type Response Substance Abuse Use: None. Alcohol Never Smoking Status Never smoker; Ready to change: No; Concerns about tobacco use in household: No; Exposure to Tobacco Smoke None; Cigarette Smoking Last 365 Days No; Reg Smoking Cessation Counseling No entered on: 05/22/18 Assessment and Plan No data available for this section
--- OUTSIDE RECORDS SUMMARY | 2019-05-17 06:14 | XMS REPORT | CCD ---
Author Author Auto Generated Organization [facility] Outpatient Imaging [facility] Address Unknown Phone Unavailable Care Team Providers Care Laborer [facility] Name Role Phone Esteban Powell Jr CP Allergies, Adverse Reactions, Alerts Substance Reaction Status Adhesive Tape skin Active codeine nausea Active Problem List Condition Effective Dates Status Neck pain Active
--- OUTSIDE RECORDS SUMMARY | 2019-05-17 06:14 | XMS REPORT | CCD ---
Author Author Auto Generated Organization [facility] Address Unknown Phone Unavailable Care Team Providers Care Manager Surgical Name Role Phone Sherry Esteban RP Allergies, Adverse Reactions, Alerts Substance Reaction Status Adhesive Tape skin Active codeine nausea Active Problem List Condition Effective Dates Status Neck pain Active Medications Medication Instructions Start Date End Date Status Lactated Ringers 1,000 mL, Rate: 70 ml/hr, Infuse 10/01/2012 10/01/2012 Completed Injection IV 1,000 over: 14.3 hr, Route: IV, kg, Total mL Volume: 1,000, Start date: 10/01/12 6:00:00, Duration: 1 doses or times, Stop date: 10/01/12 20:17:00 Lactated Ringers 1,000 mL, Rate: 100 ml/hr, Infuse 10/01/2012 10/01/2012 Discontinued Injection IV 1,000 over: 10 hr, Route: IV, kg, Total mL Volume: 1,000, Start date: 10/01/12 6:00:00, Duration: 1 doses or times, Stop date: 10/01/12 15:59:00 cefazolin + Sodium 1 gm, Route: IVPB, PRE OP, Start 10/01/2012 10/01/2012 Discontinued Chloride 0.9% IV 100 date: 10/01/12 6:00:00, Duration: 1 mL doses or times cefazolin + Sodium 1 gm, Route: IVPB, PRE OP, Start 10/01/2012 10/01/2012 Discontinued Chloride 0.9% IV 100 date: 10/01/12 6:00:00, Duration: 1 mL doses or times Demerol HCl 12.5 mg, Route: IVP, ONCE, Dosing 10/01/2012 10/01/2012 Completed Weight 67.273, kg, Start date: 10/01/12 10:10:00, Stop date: 10/01/12 10:10:00 Reglan 10 mg, 1 tab, Route: PO, Drug form: 10/01/2012 10/02/2012 Discontinued TAB, BID, PRN Nausea & Vomiting, Start date: 10/01/12 11:21:00, Duration: 30 day, Stop date: 10/31/12 11:20:00 Reglan 10 mg, 2 mL, Route: IV, Drug form: 10/01/2012 10/02/2012 Discontinued INJ, BID, PRN Nausea & Vomiting, Start date: 10/01/12 11:21:00, Duration: 30 day, Stop date: 10/31/12 11:20:00 Protonix 40 mg, 1 tab, Route: PO, Drug form: 10/01/2012 10/02/2012 Discontinued ECTAB, Before Dinner, Start date: 10/01/12 16:30:00, Duration: 30 day, Stop date: 10/30/12 16:30:00 heparin 5,000 unit, 1 mL, Route: SUB-Q, 10/01/2012 10/01/2012 Discontinued Drug form: INJ, [id number], Start date: 10/01/12 18:00:00, Duration: 30 day, Stop date: 10/31/12 6:00:00 docusate sodium 100 100 mg, 1 cap, Route: PO, Drug 10/01/2012 10/02/2012 Discontinued mg oral capsule form: CAP, BID, Start date: 10/01/12 17:00:00, Duration: 30 day, Stop date: 10/31/12 9:00:00 benzocaine-cetylpyri 1 lozenge, Route: MUCOUS MEM, Q6H, 10/01/2012 10/02/2012 Discontinued dinium topical Drug form: CASE PRN Sore Throat, Start date: 10/01/12 11:21:00, Duration: 30 day, Stop date: 10/31/12 11:20:00 Demerol HCl 12.5 mg, Route: IVP, ONCE, Dosing 10/01/2012 10/01/2012 Completed Weight 67.273, kg, Start date: 10/01/12 10:10:00, Stop date: 10/01/12 10:10:00 Zofran 8 mg, 4 mL, Route: IVP, Drug form: 10/01/2012 10/02/2012 Discontinued INJ, Q8H, PRN Nausea, Start date: 10/01/12 11:21:00, Duration: 30 day, Stop date: 10/31/12 11:20:00 Valium 5 mg, 1 mL, Route: IV, Drug form: 10/01/2012 10/02/2012 Discontinued INJ, Q4H, PRN Muscle Spasms, Start date: 10/01/12 11:21:00, Duration: 30 day, Stop date: 10/31/12 11:20:00 Valium 5 mg, 1 tab, Route: PO, Drug form: 10/01/2012 10/02/2012 Discontinued TAB, Q4H, PRN Muscle Spasms, Start date: 10/01/12 11:21:00, Duration: 30 day, Stop date: 10/31/12 11:20:00 Valium 10 mg, 2 mL, Route: IV, Drug form: 10/01/2012 10/02/2012 Discontinued INJ, Q4H, PRN Muscle Spasms, Start date: 10/01/12 11:21:00, Duration: 30 day, Stop date: 10/31/12 11:20:00 Tylenol 650 mg, 2 tab, Route: PO, Drug 10/01/2012 10/02/2012 Discontinued form: TAB, Q4H, PRN Pain/Fever, Start date: 10/01/12 11:21:00, Duration: 30 day, Stop date: 10/31/12 11:20:00 Valium 10 mg, 2 tab, Route: PO, Drug form: 10/01/2012 10/02/2012 Discontinued TAB, Q4H, PRN Muscle Spasms, Start date: 10/01/12 11:21:00, Duration: 30 day, Stop date: 10/31/12 11:20:00 Dilaudid 8 mg, 4 tab, Route: PO, Drug form: 10/01/2012 10/02/2012 Discontinued TAB, Q4H, PRN Pain Score 7-10, Start date: 10/01/12 11:21:00, Duration: 30 day, Stop date: 10/31/12 11:20:00 Dilaudid 4 mg, 2 tab, Route: PO, Drug form: 10/01/2012 10/02/2012 Discontinued TAB, Q4H, PRN Pain Score 4-6, Start date: 10/01/12 11:21:00, Duration: 30 day, Stop date: 10/31/12 11:20:00 Dilaudid 4 mg, 2 mL, Route: IV, Drug form: 10/01/2012 10/02/2012 Discontinued INJ, Q4H, PRN Pain Score 7-10, Start date: 10/01/12 11:21:00, Duration: 30 day, Stop date: 10/31/12 11:20:00 Dilaudid 2 mg, 1 mL, Route: IV, Drug form: 10/01/2012 10/02/2012 Discontinued INJ, Q4H, PRN Pain Score 7-10, Start date: 10/01/12 11:21:00, Duration: 30 day, Stop date: 10/31/12 11:20:00 Dilaudid 1 mg, 0.5 mL, Route: IV, Drug form: 10/01/2012 10/02/2012 Discontinued INJ, Q4H, PRN Pain Score 4-6, Start date: 10/01/12 11:21:00, Duration: 30 day, Stop date: 10/31/12 11:20:00 Dulcolax Laxative 10 mg, 1 supp, Route: CO, Drug 10/01/2012 10/01/2012 Completed form: SUPP, ONCE, Start date: 10/01/12 21:00:00, Stop date: 10/01/12 21:00:00 cefazolin + Sodium 1 gm, Route: IVPB, [id number], Start 10/01/2012 10/01/2012 Completed Chloride 0.9% IV 100 date: 10/01/12 15:00:00, Duration: mL 2 doses or times, Stop date: 10/01/12 23:00:00 Vitamin B12 1,000 microgram, 1 mL, Route: IM, 10/02/2012 10/02/2012 Discontinued Drug form: INJ, QTue, Start date: 10/02/12 9:00:00, Duration: 30 day, Stop date: 10/30/12 9:00:00 heparin 5,000 unit, 1 mL, Route: SUB-Q, 10/02/2012 10/02/2012 Discontinued Drug form: INJ, [id number], Start date: 10/02/12 6:00:00, Duration: 30 day, Stop date: 10/31/12 18:00:00 Lactated Ringers 1,000 mL, Rate: 125 ml/hr, Infuse 10/01/2012 10/02/2012 Discontinued Injection IV 1,000 over: 8 hr, Route: IV, kg, Total mL Volume: 1,000, Start date: 10/01/12 11:20:00, Duration: 30 day, Stop date: 10/31/12 11:19:00 multivitamin with 1 tab, Route: PO, Drug Form: TAB, 10/01/2012 10/02/2012 Discontinued minerals Breakfast, Start date: 10/01/12 17:00:00, Duration: 30 day, Stop date: 10/31/12 8:00:00 Vitamin D3 400 unit, 1 tab, Route: PO, Drug 10/01/2012 10/02/2012 Discontinued form: TAB, Daily, Start date: 10/01/12 17:00:00, Duration: 30 day, Stop date: 10/31/12 9:00:00 Tums 1,000 mg, 2 tab, Route: CHEW, Drug 10/01/2012 10/02/2012 Discontinued form: CHEWTAB, Daily, Start date: 10/01/12 17:00:00, Duration: 30 day, Stop date: 10/31/12 9:00:00 Celexa 20 mg, 1 tab, Route: PO, Drug form: 10/01/2012 10/02/2012 Discontinued TAB, Daily, PRN Other -See Comment, Start date: 10/01/12 11:35:00, Duration: 30 day, Stop date: 10/31/12 11:34:00 esterified 2 tab, Route: PO, Drug Form: TAB, 10/01/2012 10/02/2012 Discontinued estrogens-methyltest Daily, Start date: 10/01/12 osterone 0.625 17:00:00, Duration: 30 day, Stop mg-1.25 mg oral date: 10/31/12 9:00:00 tablet Protonix 40 mg, 1 tab, Route: PO, Drug form: 10/01/2012 10/02/2012 Discontinued ECTAB, Q12H, Start date: 10/01/12 13:00:00, Duration: 30 day, Stop date: 10/31/12 9:00:00 Zofran 4 mg, Route: IV, Drug form: INJ, 10/01/2012 10/01/2012 Completed ONCE, Dosing Weight 67.273, kg, PRN Nausea, Start date: 10/01/12 6:32:00, Stop date: 10/31/12 6:31:00 Microzide 12.5 mg, 1 cap, Route: PO, Drug 10/01/2012 10/02/2012 Discontinued form: CAP, Daily, PRN Other -See Comment, Start date: 10/01/12 11:25:00, Duration: 30 day, Stop date: 10/31/12 11:24:00 Prinivil 5 mg, 1 tab, Route: PO, Drug form: 10/01/2012 10/02/2012 Discontinued TAB, Daily, Start date: 10/01/12 17:00:00, Duration: 30 day, Stop date: 10/31/12 9:00:00 Pepcid 20 mg, Route: IVP, ONCE, Dosing 10/01/2012 10/01/2012 Completed Weight 67.273, kg, Start date: 10/01/12 6:32:00, Stop date: 10/01/12 6:32:00 Reglan 10 mg, Route: IVP, ONCE, Dosing 10/01/2012 10/01/2012 Completed Weight 67.273, kg, Start date: 10/01/12 6:32:00, Stop date: 10/01/12 6:32:00 Levsin 0.125 mg, 1 tab, Route: SL, Drug 10/01/2012 10/02/2012 Discontinued form: TAB, Q4H, PRN Stomach Upset, Start date: 10/01/12 11:32:00, Duration: 30 day, Stop date: 10/31/12 11:31:00 Antivert 25 mg, 1 tab, Route: PO, Drug form: 10/01/2012 10/02/2012 Discontinued TAB, Q8H, PRN Dizziness, Start date: 10/01/12 11:31:00, Duration: 30 day, Stop date: 10/31/12 11:30:00 Demerol HCl 12.5 mg, Route: IVP, ONCE, Dosing 10/01/2012 10/01/2012 Completed Weight 67.273, kg, Start date: 10/01/12 10:30:00, Stop date: 10/01/12 10:30:00 Demerol HCl 12.5 mg, Route: IVP, ONCE, Dosing 10/01/2012 10/01/2012 Completed Weight 67.273, kg, Start date: 10/01/12 10:30:00, Stop date: 10/01/12 10:30:00 lidocaine 0.1 mL, Route: IV, Drug form: INJ, 10/01/2012 10/01/2012 Completed ONCALL, Start date: 10/01/12 6:00:00, Duration: 1 doses or times Vital Signs Most recent to oldest [Reference Range]: 1 2 3 Height 157.48 cm (09/25/2012 11:05:00) Temperature Oral [96.4-99.1 DegF] 98 DegF (10/02/2012 07:00:00) 97.9 DegF (10/02/2012 04:00:00) 97.7 DegF (10/01/2012 23:20:00) Systolic Blood Pressure [90-140 mmHg] 92 mmHg (10/02/2012 07:00:00) 104 mmHg (10/02/2012 04:00:00) 114 mmHg (10/01/2012 23:20:00) Diastolic Blood Pressure [60-90 mmHg] 54 mmHg *LOW* (10/02/2012 07:00:00) 62 mmHg (10/02/2012 04:00:00) 62 mmHg (10/01/2012 23:20:00) Respiratory Rate [14-20 BRMIN] 20 BRMIN (10/02/2012 07:00:00) 18 BRMIN (10/02/2012 04:00:00) 18 BRMIN (10/01/2012 23:20:00) Peripheral Pulse Rate [60-100 bpm] 91 bpm (10/02/2012 07:00:00) 99 bpm (10/02/2012 04:00:00) 92 bpm (10/01/2012 23:20:00) Weight 67.273 kg (09/25/2012 11:05:00) Results URINALYSIS Most recent to oldest [Reference Range]: 1 UA Turbidity [Clear] Clear (09/25/2012 10:25:00) UA Color STRAW *NA* (09/25/2012 10:25:00) UA pH [5.0-8.0] 6.5 (09/25/2012 10:25:00) UA Spec Grav [<=1.030] <=1.005 *NA* (09/25/2012 10:25:00) UA Glucose [Negative] Negative (09/25/2012 10:25:00) UA Blood [Negative] Negative (09/25/2012 10:25:00) UA Ketones [Negative] Negative *NA* (09/25/2012 10:25:00) UA Protein [Negative] Negative (09/25/2012 10:25:00) UA Urobilinogen [0.1-1.0 EU/dL] 0.2 EU/dL (09/25/2012 10:25:00) UA Bili [Negative] Negative *NA* (09/25/2012 10:25:00) UA Leuk Est [Negative] Negative (09/25/2012 10:25:00) UA Nitrite [Negative] Negative (09/25/2012 10:25:00) Micro? Not Indicated (09/25/2012 10:25:00) BLOOD BANK RESULTS Most recent to oldest [Reference Range]: 1 ABO/Rh O POS *Unknown* (09/25/2012 10:25:00) Antibody Scrn Negative (09/25/2012 10:25:00) CHEMISTRY Most recent to oldest [Reference Range]: 1 Sodium Lvl [135-145 mEq/L] 142 mEq/L (09/25/2012 10:25:00) Potassium Lvl [3.5-5.1 mEq/L] 5.1 mEq/L (09/25/2012 10:25:00) Chloride Lvl [95-109 mEq/L] 106 mEq/L (09/25/2012 10:25:00) CO2 [24-32 mEq/L] 31 mEq/L (09/25/2012 10:25:00) AGAP [10.0-20.0 mEq/L] 10.1 mEq/L (09/25/2012 10:25:00) Creatinine Lvl [0.5-1.4 mg/dL] 1.2 mg/dL (09/25/2012:25:00) eGFR 51 mL/min/1.73m2 1 *NA* (09/25/2012:25:00) BUN [7-22 mg/dL] 13 mg/dL (09/25/2012:25:00) Glucose Lvl [70-99 mg/dL] 106 mg/dL 2 *HI* (09/25/2012:25:00) Calcium Lvl [8.5-10.5 mg/dL] 9.6 mg/dL (09/25/2012:25:00) 1Result Comment: The eGFR is calculated using [...] from the National Kidney Disease Education Program ( NKDEP) which additionally recommends that when the eGFR is used in patients with extremes of body mass index for purposes of drug dosing, the eGFR should be mul tiplied by the estimated BMI. 2Interpretive Data: Adult reference range values reflect the clinical guidelines of the [place] [employer]. HEMATOLOGY Most recent to oldest [Reference Range]: 1 WBC [3.7-10.4 K/CMM] 4.6 K/CMM (09/25/2012:25:00) RBC [4.20-5.40 M/CMM] 4.50 M/CMM (09/25/2012:25:00) Hgb [12.0-16.0 g/dL] 13.5 g/dL (09/25/2012::00) Hct [36.0-48.0 %] 40.9 % (09/25/2012:25:00) MCV [81.0-99.0 fL] 90.9 fL (09/25/2012:25:00) MCH [27.0-31.0 pg] 30.0 pg (09/25/2012 10:25:00) MCHC [32.0-36.0 g/dL] 33.0 g/dL (09/25/2012 10:25:00) RDW [11.5-14.5 %] 14.1 % (09/25/2012 10:25:00) Platelet [133-450 K/CMM] 229 K/CMM (09/25/2012 10:25:00) MPV [7.4-10.4 fL] 8.3 fL (09/25/2012 10:25:00) Segs [45.0-75.0 %] 53.1 % (09/25/2012 10:25:00) Lymphocytes [20.0-40.0 %] 34.8 % (09/25/2012 10:25:00) Monocytes [2.0-12.0 %] 7.5 % (09/25/2012 10:25:00) Eosinophils [0.0-4.0 %] 4.0 % (09/25/2012 10:25:00) Basophils [0.0-1.0 %] 0.6 % (09/25/2012 10:25:00) Segs-Bands # [1.5-8.1 K/CMM] 2.5 K/CMM (09/25/2012 10:25:00) Lymphocytes # [1.0-5.5 K/CMM] 1.6 K/CMM (09/25/2012 10:25:00) Monocytes # [0.0-0.8 K/CMM] 0.3 K/CMM (09/25/2012 10:25:00) Eosinophils # [0.0-0.5 K/CMM] 0.2 K/CMM (09/25/2012 10:25:00) Basophils # [0.0-0.2 K/CMM] 0.0 K/CMM (09/25/2012 10:25:00) PT [12.0-14.7 seconds] 12.9 seconds (09/25/2012 10:25:00) INR [0.85-1.17] 0.95 3 (09/25/2012 10:25:00) PTT [22.9-35.8 seconds] 38.2 seconds 4 *HI* (09/25/2012 10:25:00) 3Interpretive Data: RECOMMENDED RANGES FOR PROTIME INR: 2.0-3.0 for most medical and surgical thromboembolic states. 2.5-3.5 for artificial heart valves and recurrent embolism. INR SHOULD BE USED ONLY FOR PATIENTS ON STABLE ANTICOAGULANT THERAPY. 4Interpretive Data: Heparin Therapeutic Range: 57 - 92 Seconds
--- OUTSIDE RECORDS SUMMARY | 2019-05-17 06:14 | XMS REPORT | Summary of Care ---
Author Author [facility] Neurosurgery [facility] Organization [facility] Neurosurgery [facility] Address Unknown Phone Unavailable Encounter HQ Encntr_alipari(FIN) [id number] Date(s): 05/17/18 - 05/18/18 [facility] Neurosurgery [facility] [address] [place] [phone] Vital Signs No data available for this [...]
--- OUTSIDE RECORDS SUMMARY | 2019-05-17 06:14 | XMS REPORT | Summary of Care ---
Author Author [facility] Neurosurgery [facility] Organization [facility] Neurosurgery [facility] Address Unknown Phone Unavailable Encounter HQ Encntr_alipari(FIN) [id number] Date(s): 05/25/18 - 05/26/18 [facility] Neurosurgery [facility] [address] [place] [phone] Vital Signs No data available for this [...]
--- OUTSIDE RECORDS SUMMARY | 2019-05-17 06:14 | XMS REPORT | Summary of Care ---
Author Author [facility] Neurosurgery [facility] Organization [facility] Neurosurgery [facility] Address Unknown Phone Unavailable Encounter HQ Encntr_alipari(FIN) [id number] Date(s): 08/07/18 - 08/08/18 [facility] Neurosurgery [facility] [address] [place] [address]- [phone] Vital Signs No data available for this [...]
--- OUTSIDE RECORDS SUMMARY | 2019-05-17 06:14 | XMS REPORT | Summary of Care ---
Author Author [facility] Organization [facility] Address Unknown Phone Unavailable Encounter JOSETTE Burnette(CHARLIE) [id number] Date(s): 05/22/18 - 05/22/18 [facility] [address] , [address] [place] [phone] Discharge Disposition: Home or Self Care Attending Physician: Ely Carrasco NP Referring Physician: Floyd Valero MD Vital Signs Most recent to 1 oldest [Reference Range]: Height 157.48 cm (05/22/18 10:12 AM) Blood Pressure 143/84 mmHg [90-140/60-90 mmHg] *HI* (05/22/18 10:12 AM) Peripheral Pulse 84 bpm Rate [60-100 bpm] (05/22/18 10:12 AM) Weight 60.682 kg (05/22/18 10:12 AM) Body Mass Index 24.47 m2 (05/22/18 10:12 AM) Problem List Condition Effective Dates Status [...] on 01/27/16. Originally documented as TAPE. Medications escitalopram 20 mg oral tablet 20 mg=1 tab, PO, Daily, # 30 tab, 0 Refill(s) Start Date: 05/22/18 Status: Ordered esomeprazole 40 mg oral delayed release capsule 40 mg=1 cap, PO, Daily, # 30 cap, 0 Refill(s) Start Date: 05/22/18 Status: Ordered lisinopril 2.5 mg oral tablet 2.5 mg=1 tab, PO, Daily, # 30 tab, 0 Refill(s) Start Date: 05/22/18 Status: Ordered polyethylene glycol 3350 oral powder for reconstitution 17 gm, PO, Daily, 0 Refill(s) Start Date: 05/22/18 Status: Ordered trazodone 50 mg oral tablet 50 mg=1 tab, PO, Bedtime, # 30 tab, 1 Refill(s) Start Date: 05/22/18 Status: Ordered Vitamin B12 1000 mcg oral tablet 1,000 microgram=1 tab, PO, Daily, # 30 tab, 0 Refill(s) Start Date: 05/22/18 Status: Ordered Xanax 0.25 mg oral tablet 0.25 mg=1 tab, PO, TID, PRN Anxiety, # 30 tab, 0 Refill(s) Start Date: 05/22/18 Stop Date: 06/01/18 Status: Ordered Zofran 8 mg oral tablet 8 mg=1 tab, PO, TID, # 3 tab, 0 Refill(s) Start Date: 05/22/18 Stop Date: 05/23/18 Status: Ordered Results No data available for this section [...]
[2019-05-17 09:54] LABS: WBC,FECAL (FECAL LACTOFERRIN) POSITIVE (NEGATIVE)
[2019-05-17 10:10] VITALS: BP 106/70
--- NOTE | 2019-05-17 10:17 | Operative Report ---
DATE OF PROCEDURE: 05/17/2019 SURGEON: Jaren Santos MD PROCEDURE: EGD with esophageal dilatation and a colonoscopy with polypectomy and biopsies. INDICATIONS FOR EGD: Dysphagia, heartburn, bloating. INDICATION FOR COLONOSCOPY: Diarrhea, intermittent. Decrease in stool caliber. History of colon polyps. MEDICATIONS: The patient was done under MAC, please see anesthesiologist's note. PROCEDURE IN DETAIL: With the patient in left lateral decubitus position, flexible fiberoptic Olympus gastroscope was introduced into the esophagus under direct visualization without any difficulty. Grade 1 esophageal varices versus prominent esophageal veins were noted in the distal esophagus. The esophagus was then dilated to size 52-[place] Yen. The scope was then advanced with ease into the stomach and the patient is status post James-en-Y anastomosis appeared to be intact. There were no marginal ulcers. The enteric loop was intubated in the mucosa revealed some patchy erythema and some low-grade edema and biopsies were obtained. The scope was then withdrawn back into the gastric stump at retroflexed and a hiatal hernia was noted. The scope was then straightened out, it was subsequently withdrawn. The patient tolerated procedure well. IMPRESSION: 1. ? grade 1 esophageal varices versus prominent esophageal veins. 2. Esophagus dilated to size 52-[place] Yen. 3. Hiatal hernia. 4. Status post James-en-Y, anastomosis intact, biopsies obtained from the efferent loop. PLAN: Follow up histology. Continue Nexium 40 mg one p.o. a.c. b.i.d. PROCEDURE IN DETAIL: The patient was then turned around after adequate lubrication of the anal canal, a flexible fiberoptic Olympus colonoscope was inserted into the rectum with ease and advanced all the way to the cecum. Mucosa overlying the cecum appeared to be within normal limits. The ileocecal valve was intubated and the scope was advanced into the terminal ileum. Biopsies were obtained. The scope was then withdrawn back into the colon, it was then withdrawn slowly. Mucosa overlying the ascending, transverse, descending, and sigmoid colon revealed some patchy areas of erythema and low-grade edema and random biopsies were obtained. One polyp was snared from the descending colon. Diverticular disease was noted to be involving the distal descending and the sigmoid colon. One polyp was hot biopsied from the sigmoid and four polyps were hot biopsied from the rectum. The scope was then retroflexed into the distal rectum and small internal hemorrhoids were noted none of which was actively bleeding. The scope was then straightened out, it was subsequently withdrawn after securing an adequate stool specimen that was sent for the appropriate stool studies. The patient tolerated the procedure well. IMPRESSION: 1. Descending colon polyp snared. 2. Diverticulosis. 3. Sigmoid colon polyp, hot biopsied. 4. Rectal polyps x4, hot biopsied. 5. Internal hemorrhoids, none actively bleeding. PLAN: 1. Follow up histology. 2. Follow up stool studies. 3. Initiate VSL#3 one p.o. daily. 4. Bentyl 10 mg one p.o. t.i.d. 5. Check celiac disease panel. 6. The patient might benefit from a followup colonoscopy in 3 years. Jaren Santos MD [facility] [place]/MODL /[id number] cc: Floyd Steele MD
[2019-05-17 11:16] LABS: C DIFFICILE TOXIN A&B AMP PROB NEGATIVE (NEGATIVE)
[2019-05-21 05:11] LABS: ENDOMYSIAL ANTIBODIES, IGA Negative (Negative)
== END | disposition home or self-care (01) ==
LOC: OR 06:05
PROVIDERS: ATTEND Internal Medicine Gastroenterology
DX: K59.00 Constipation, unspecified (principal); D12.4 Benign neoplasm of descending colon; K62.1 Rectal polyp; K51.80 Other ulcerative colitis without complications; K20.9 Esophagitis, unspecified; K44.9 Diaphragmatic hernia without obstruction or gangrene; K57.30 Diverticulosis of large intestine without perforation or abscess without bleeding; K64.8 Other hemorrhoids; K21.9 Gastro-esophageal reflux disease without esophagitis; Z98.84 Bariatric surgery status; I10 Essential (primary) hypertension; E78.00 Pure hypercholesterolemia, unspecified; F32.9 Major depressive disorder, single episode, unspecified; F41.9 Anxiety disorder, unspecified; F17.210 Nicotine dependence, cigarettes, uncomplicated; Z88.6 Allergy status to analgesic agent; Z91.048 Other nonmedicinal substance allergy status; Z01.810 Encounter for preprocedural cardiovascular examination; Z86.2 Personal history of diseases of the blood and blood-forming organs and certain disorders involving the immune mechanism
CPT/HCPCS: 43239; 43450; 45380; 45384; 45385; 82784; 83516; 83630; 83993; 86256; 87045; 87177; 87328; 87493; 93005; J1610; J2250; J2405; J2704; 45378; J3010

== ENCOUNTER → 2020-06-23 | Outpatient (CLI) | payer OTHER ==
[~2020-06-23] MED LIST changes: -FAMOTIDINE 20 MG/2 ML VIAL IV ONE; -FENTANYL CITRATE/PF 100MCG/2 ML INJ ONE; -GLUCAGON FOR INJ 1 MG VIAL ONE; -HYOSCYAMINE 0.125 MG TAB ONE; -MIDAZOLAM HCL 2 MG/2 ML VIAL ONE; -ONDANSETRON HCL INJ 2MG/ML 2ML 2 MG/ML VIAL ONE; -PROPOFOL IV EMULSION 10 MG/ML 20 ML VIAL ONE
--- NOTE | 2020-06-23 09:08 | Diagnostic Imaging Report ---
EXAM: Right upper quadrant abdominal ultrasound INDICATION: Abnormal LFTs COMPARISON: Abdomen and pelvis CT of 05/02/2012 TECHNIQUE: Transverse and longitudinal images of the right upper quadrant abdomen were obtained FINDINGS: Liver: Size: 13.8 cm in the right midclavicular line, normal Appearance: Mildly coarse echotexture, smooth contour Mass: No focal masses Gallbladder: Status post cholecystectomy. Negative sonographic Bonner's sign. Bile Ducts: Intrahepatic Ducts: No dilatation Extrahepatic Ducts: Common bile duct measures 7 mm Pancreas: Visualized portions of the pancreatic head, neck and proximal body are normal. Kidney: The right kidney measures 9.5 cm without evidence of hydronephrosis or stone. Vessels: Aorta: Visualized portions are normal Inferior Vena Cava: Visualized portions are normal Main Portal Vein: 1.2 cm, normal size with hepatopetal flow. Free Fluid: No ascites or pleural effusion IMPRESSION: Mildly coarse hepatic echotexture. No focal mass. Status post cholecystectomy. Signed by: Hilaria Madsen MD on 06/23/2020 9:04 AM
== END ==
LOC: US 07:17
PROVIDERS: ATTEND Internal Medicine Gastroenterology
DX: R11.0 Nausea (principal); R94.5 Abnormal results of liver function studies
CPT/HCPCS: 76705